=== PATIENT | female | born 1995 | race Caucasian/White ===

== ENCOUNTER 2017-11-25 09:07 | Emergency (ER) | payer OTHER ==
[~2017-11-25] VITALS: Ht 177.8 cm; Wt 61.2 kg
[2017-11-25 09:57] LABS: BASOPHILS ABSOLUTE AUTO 0.01 K/mm3 (0.00-0.23); BASOPHILS PERCENT AUTO 0 % (0-2); EOSINOPHILS ABSOLUTE AUTO 0.01 K/mm3 (0.00-0.68); EOSINOPHILS PERCENT AUTO 0 % (0-6); Hematocrit 42.5 % (33.0-51.0); Hemoglobin 14.3 g/dL (11.5-16.0); IMMATURE GRAN ABSOLUTE AUTO 0.01 K/mm3 (0.00-0.10); IMMATURE GRAN PERCENT AUTO 0 % (0-1); LYMPHOCYTES ABSOLUTE AUTO 1.55 K/mm3 (0.84-5.20); LYMPHOCYTES PERCENT AUTO 41 % (21-46); MONOCYTES ABSOLUTE AUTO 0.53 K/mm3 (0.16-1.47); MONOCYTES PERCENT AUTO 14 % (4-13); Mean Corpuscular HGB Conc 33.6 g/dL (31.5-36.5); Mean Corpuscular Volume 89 fL (80-100); Mean Platelet Volume 11.4 fL (9.1-12.4); NEUTROPHILS ABSOLUTE AUTO 1.66 K/mm3 (1.96-9.15); NEUTROPHILS PERCENT AUTO 44 % (41-73); Platelet Count 188 K/mm3 (150-400); RDW Coefficient Variation 11.9 % (11.7-14.2); Red Blood Cell Count 4.76 M/mm3 (3.80-5.20); White Blood Cell Count 3.77 K/mm3 (4.00-11.30)
[2017-11-25 10:53] LABS: Alanine Aminotransfer (ALT/SGP 22 U/L (12-78); Albumin, Blood 3.9 g/dL (3.4-5.0); Albumin/Globulin Ratio 1.3 (0.8-1.8); Alk Phos 64 U/L (50-136); Anion Gap 6 mmol/L (6-16); Aspartate Aminotrans (AST/SGOT 15 U/L (12-37); Bilirubin, Total 0.7 mg/dL (0.1-1.0); Blood Urea Nitrogen 11 mg/dL (8-24); Bun/Creatinine Ratio 16.7 (12.0-20.0); CO2, Blood 26 mmol/L (21-32); Calcium, Blood 8.8 mg/dL (8.5-10.1); Chloride, Blood 108 mmol/L (98-108); Creatinine, Blood 0.66 mg/dL (0.40-1.00); Glomerular Filtration Rate >60 (60-); Glucose, Blood 81 mg/dL (70-99); Potassium, Blood 3.7 mmol/L (3.5-5.5); Sodium, Blood 140 mmol/L (136-145); Total Protein, Blood 6.9 g/dL (6.4-8.2); Troponin I <0.015 ng/mL (0.000-0.040)
[2017-11-25] MEDS ORDERED: IBUP600 PO (11:16)
== END 2017-11-25 11:20 | disposition home or self-care (01) ==
LOC: ER 09:07
PROVIDERS: Internal Medicine
DX: I30.9 Acute pericarditis, unspecified (principal)
CPT/HCPCS: 36415; 71046; 80053; 84484; 85025; 85379; 85651; 86140; 93005; 93010; 96374; 99284; J1885

== ENCOUNTER → 2019-04-17 | Outpatient (CLI) | payer BC ==
[~2019-04-17] MED LIST: IBUP600 PO
[2019-04-19 02:07] LABS: CHLAMYDIA TRACHOMATIS, NAA Negative (Negative); NEISSERIA GONORRHOEAE, NAA Negative (Negative)
== END | disposition home or self-care (01) ==
LOC: LAB SHORT 15:48 → LAB 15:48
PROVIDERS: Obstetrics & Gynecology
DX: Z01.419 Encounter for gynecological examination (general) (routine) without abnormal findings (principal)
CPT/HCPCS: 87491; 87591; G0123

== ENCOUNTER 2019-07-16 05:47 | Day surgery (SDC) | payer BC ==
[~2019-07-16 05:47] MED LIST changes: +Clomiphene Citr50 MG PO; +METF500 PO; +ZOLP10 PO
[2019-07-16] MEDS ORDERED: LETR2.5 PO (06:45)
--- NOTE | 2019-07-16 07:01 | NUR ---
History, Chart, Medications and Allergies reviewed before start of procedure. Lungs clear T/O to Auscultation. Patient confirms NPO status and agrees with scheduled surgery. Pre-Op teaching done. Pt verbalizes understanding.
--- NOTE | 2019-07-16 10:59 | NUR ---
DR. SUE AT BEDSIDE TO LOOK AT PT EYE. REMAINS IRRITATED. REFRESH TEARS ORDERED AND ADMINISTERED WITH LITTLE EFFECT. Discharge instructions reviewed with patient. Patient verbalizes understanding. Copy given to patient to take home. Discharged via wheelchair to private car for ride home.
--- NOTE | 2019-07-16 11:00 | NUR ---
ICE PACK GIVEN FOR ICE THERAPY. DRESSING TO BE REMOVED IN 8 HOURS.
== END 2019-07-16 11:01 | disposition home or self-care (01) ==
LOC: ORSCMMR 05:47 → ORD 07:30 → ORSCMMR 11:01
PROVIDERS: Surgery
PROC: 0JPV0HZ Removal of Contraceptive Device from Upper Extremity Subcutaneous Tissue and Fascia, Open Approach (ICD-10-PCS; principal; 2019-07-16 07:30)
DX: L92.3 Foreign body granuloma of the skin and subcutaneous tissue (principal); Z18.2 Retained plastic fragments; E28.2 Polycystic ovarian syndrome; Z79.899 Other long term (current) drug therapy
CPT/HCPCS: 76882; 88300; A9270-GY; J0690; J2250; J2405; J2704; J3010; J7120

== ENCOUNTER → 2019-09-28 | Outpatient (CLI) | payer BC ==
[~2019-09-28] MED LIST changes: +LETR2.5 PO
== END | disposition home or self-care (01) ==
LOC: LAB 09:00 → LAB SHORT 09:00
DX: R11.0 Nausea (principal); R53.83 Other fatigue
CPT/HCPCS: 84144; 84702; 84703

== ENCOUNTER → 2020-08-31 | Outpatient (CLI) | payer BC ==
[~2020-08-31] MED LIST changes: +IBUP800 PO; +PRENATAL TABLE1 EAC2 PO; +Percocet 5-3251 EACH PO
== END | disposition home or self-care (01) ==
LOC: LAB 11:09
DX: O09.92 Supervision of high risk pregnancy, unspecified, second trimester (principal)
CPT/HCPCS: 87081; 87150

== ENCOUNTER → 2021-12-28 | Outpatient (CLI) | payer BC | END | disposition home or self-care (01) | LOC: LAB 16:04 → LAB SHORT 16:04 | PROVIDERS: Obstetrics & Gynecology | DX: Z12.4 Encounter for screening for malignant neoplasm of cervix (principal) | CPT/HCPCS: G0123 ==

== ENCOUNTER → 2022-09-08 | Outpatient (CLI) | payer BC ==
[2022-09-08 14:02] LABS: BASOPHILS ABSOLUTE AUTO 0.01 K/mm3 (0.00-0.23); BASOPHILS PERCENT AUTO 0 % (0-2); EOSINOPHILS ABSOLUTE AUTO 0.07 K/mm3 (0.00-0.68); EOSINOPHILS PERCENT AUTO 2 % (0-6); Hematocrit 41.8 % (33.0-51.0); Hemoglobin 14.1 g/dL (11.5-16.0); IMMATURE GRAN ABSOLUTE AUTO 0.01 K/mm3 (0.00-0.10); IMMATURE GRAN PERCENT AUTO 0 % (0-1); LYMPHOCYTES ABSOLUTE AUTO 1.73 K/mm3 (0.84-5.20); LYMPHOCYTES PERCENT AUTO 39 % (21-46); MONOCYTES ABSOLUTE AUTO 0.47 K/mm3 (0.16-1.47); MONOCYTES PERCENT AUTO 11 % (4-13); Mean Corpuscular HGB 29.6 pg (26.0-34.0); Mean Corpuscular HGB Conc 33.7 g/dL (31.5-36.5); Mean Corpuscular Volume 88 fL (80-100); Mean Platelet Volume 11.5 fL (9.1-12.4); NEUTROPHILS ABSOLUTE AUTO 2.14 K/mm3 (1.96-9.15); NEUTROPHILS PERCENT AUTO 48 % (41-73); Platelet Count 201 K/mm3 (150-400); RDW Coefficient Variation 12.3 % (11.7-14.2); RDW Standard Deviation 39.7 fL (35.1-46.3); Red Blood Cell Count 4.76 M/mm3 (3.80-5.20); White Blood Cell Count 4.43 K/mm3 (4.00-11.30)
[2022-09-08 14:11] LABS: Albumin, Blood 4.1 g/dL (3.4-5.0); Albumin/Globulin Ratio 1.5 (0.8-1.8); Bilirubin, Total 0.5 mg/dL (0.1-1.0); Bun/Creatinine Ratio 10.4 (12.0-20.0); Calcium, Blood 8.8 mg/dL (8.5-10.1); Creatinine, Blood 0.77 mg/dL (0.40-1.00); Globulin, Blood 2.8 g/dL (2.2-4.0); Total Protein, Blood 6.9 g/dL (6.4-8.2)
== END ==
LOC: LAB 13:56 → LAB SHORT 13:56
PROVIDERS: Physician Assistant Medical
DX: R07.9 Chest pain, unspecified (principal)
CPT/HCPCS: 80053; 84484; 85025

== ENCOUNTER → 2023-04-19 | Outpatient (CLI) | payer BC ==
[2023-04-20 12:21] LABS: Candida species (DNA Probe) Negative (NEGATIVE); G. vaginalis (DNA Probe) Negative (NEGATIVE); T. vaginalis (DNA Probe) Negative (NEGATIVE)
== END ==
LOC: LAB SHORT 10:27 → LAB 10:27
PROVIDERS: Emergency Medicine
DX: N39.0 Urinary tract infection, site not specified (principal); R31.9 Hematuria, unspecified
CPT/HCPCS: 87086; 87480; 87510; 87660

== ENCOUNTER 2023-08-17 19:12 | Emergency (ER) | payer BC ==
[~2023-08-17] VITALS: Ht 177.8 cm; Wt 63.5 kg
[2023-08-17 19:33] LABS: BASOPHILS ABSOLUTE AUTO 0.01 K/mm3 (0.00-0.23); BASOPHILS PERCENT AUTO 0 % (0-2); EOSINOPHILS ABSOLUTE AUTO 0.06 K/mm3 (0.00-0.68); EOSINOPHILS PERCENT AUTO 1 % (0-6); Hematocrit 37.7 % (33.0-51.0); Hemoglobin 12.7 g/dL (11.5-16.0); IMMATURE GRAN ABSOLUTE AUTO 0.01 K/mm3 (0.00-0.10); IMMATURE GRAN PERCENT AUTO 0 % (0-1); LYMPHOCYTES ABSOLUTE AUTO 2.44 K/mm3 (0.84-5.20); LYMPHOCYTES PERCENT AUTO 35 % (21-46); MONOCYTES ABSOLUTE AUTO 0.62 K/mm3 (0.16-1.47); MONOCYTES PERCENT AUTO 9 % (4-13); Mean Corpuscular HGB Conc 33.7 g/dL (31.5-36.5); Mean Corpuscular Volume 89 fL (80-100); NEUTROPHILS ABSOLUTE AUTO 3.87 K/mm3 (1.96-9.15); NEUTROPHILS PERCENT AUTO 55 % (41-73); Platelet Count 205 K/mm3 (150-400); RDW Coefficient Variation 12.3 % (11.7-14.2); RDW Standard Deviation 40.1 fL (35.1-46.3); Red Blood Cell Count 4.24 M/mm3 (3.80-5.20); White Blood Cell Count 7.01 K/mm3 (4.00-11.30)
[2023-08-17 21:04] LABS: Albumin, Blood 3.7 g/dL (3.4-5.0); Albumin/Globulin Ratio 1.4 (0.8-1.8); Bilirubin, Total 0.4 mg/dL (0.1-1.0); Bun/Creatinine Ratio 19.1 (12.0-20.0); Calcium, Blood 8.8 mg/dL (8.5-10.1); Creatinine, Blood 0.73 mg/dL (0.40-1.00); Globulin, Blood 2.7 g/dL (2.2-4.0); Potassium, Blood 3.3 mmol/L (3.5-5.5); Total Protein, Blood 6.4 g/dL (6.4-8.2)
[2023-08-17 21:51] VITALS: BP 124/78
== END 2023-08-17 21:52 | disposition home or self-care (01) ==
LOC: ER 19:12
PROVIDERS: Student in an Organized Health Care Education/Training Program
DX: O99.891 Other specified diseases and conditions complicating pregnancy (principal); R10.9 Unspecified abdominal pain; Z79.899 Other long term (current) drug therapy; Z3A.01 Less than 8 weeks gestation of pregnancy
CPT/HCPCS: 36415; 76801; 76817; 80053; 84702; 85025; 86900; 86901; 99284-25

== ENCOUNTER → 2023-10-01 | Outpatient (CLI) | payer BC ==
[2023-10-04 07:10] LABS: APTIMA MEDIA TYPE Urine; C. TRACHOMATIS BY TMA Negative (Negative); N. GONORRHOEAE BY TMA Negative (Negative); SPECIMEN SOURCE Urine
== END ==
LOC: LAB SHORT 08:53 → LAB 08:53
PROVIDERS: Family Medicine
DX: Z34.81 Encounter for supervision of other normal pregnancy, first trimester (principal)
CPT/HCPCS: 87086; 87491; 87591

== ENCOUNTER → 2024-03-25 | Outpatient (CLI) | payer BC | END | disposition home or self-care (01) | LOC: LAB SHORT 16:31 → LAB 16:31 | DX: Z34.83 Encounter for supervision of other normal pregnancy, third trimester (principal); Z3A.36 36 weeks gestation of pregnancy | CPT/HCPCS: 87081; 87150 ==

== ENCOUNTER 2024-04-11 05:11 | Inpatient (IN) | payer BC ==
[~2024-04-11] VITALS: Ht 177.8 cm; Wt 72.7 kg
[2024-04-11] VITALS (16 sets, daily range): BP systolic 109–135; BP diastolic 60–90
[2024-04-11] MEDS ORDERED: Citric Acid/Sodium Citrate 30 ML BTL PO SCH (05:15)
[2024-04-11] MEDS ORDERED: Metoclopramide HCl 5MG / ML 2ML Vial IV SCH (05:15)
[2024-04-11] MEDS ORDERED: Lactated Ringer's 1,000 ML IV SCH ×2 (05:15)
[2024-04-11] MEDS ORDERED: CefOXitin Sodium 2,000 MG in NS 50 ML IV SCH ×2 (05:20→06:45)
[2024-04-11 05:40] LABS: BASOPHILS ABSOLUTE AUTO 0.01 K/mm3 (0.00-0.23); BASOPHILS PERCENT AUTO 0 % (0-2); EOSINOPHILS ABSOLUTE AUTO 0.07 K/mm3 (0.00-0.68); EOSINOPHILS PERCENT AUTO 1 % (0-6); Hematocrit 35.5 % (33.0-51.0); Hemoglobin 11.7 g/dL (11.5-16.0); IMMATURE GRAN ABSOLUTE AUTO 0.03 K/mm3 (0.00-0.10); IMMATURE GRAN PERCENT AUTO 0 % (0-1); LYMPHOCYTES ABSOLUTE AUTO 1.95 K/mm3 (0.84-5.20); LYMPHOCYTES PERCENT AUTO 29 % (21-46); MONOCYTES ABSOLUTE AUTO 0.77 K/mm3 (0.16-1.47); MONOCYTES PERCENT AUTO 11 % (4-13); Mean Corpuscular Volume 82 fL (80-100); NEUTROPHILS ABSOLUTE AUTO 3.96 K/mm3 (1.96-9.15); NEUTROPHILS PERCENT AUTO 59 % (41-73); Platelet Count 128 K/mm3 (150-400); RDW Standard Deviation 38.6 fL (35.1-46.3); Red Blood Cell Count 4.33 M/mm3 (3.80-5.20); White Blood Cell Count 6.79 K/mm3 (4.00-11.30)
[2024-04-11 05:44] LABS: Mean Platelet Volume 13.3 fL (9.1-12.4)
[2024-04-11] MEDS ORDERED: SERT100 PO (06:08)
[2024-04-11] MEDS ORDERED: PROM12.5S PO (06:08)
[2024-04-11] MEDS ORDERED: ACYC400 (06:09)
[2024-04-11] MEDS ORDERED: Oxytocin 10 Unit / ML Vial ONE ×4 (07:08→08:14)
[2024-04-11] MEDS ORDERED: Ondansetron HCl 2 MG / ML 2ML Vial ONE (07:09)
[2024-04-11] MEDS ORDERED: Dexamethasone Sod Phos 10 MG/ML 1ML VIAL ONE (07:09)
[2024-04-11] MEDS ORDERED: ePHEDrine Sulfate 50 MG/ML 1ML Injection ONE (08:00)
[2024-04-11] MEDS ORDERED: FentaNYL Citrate 50 MCG/ML 2 ML Injection ONE ×3 (08:11→09:33)
--- NOTE | 2024-04-11 08:19 | NUR ---
04/11/24 0819 Kourtney Garrison S C/S DELIVERY OF BABY BOY AT 0807. CORD BLOOD COLLECTED AND SENT WITH JUSTIN LEONE.
[2024-04-11] MEDS ORDERED: Glycopyrrolate 0.2 MG/ML 5ML VIAL ONE (08:23)
[2024-04-11] MEDS ORDERED: propofoL 20 ML IV ONE (08:31)
[2024-04-11] MEDS ORDERED: Bupivacaine 0.5% HCl 5 MG/ML 30MLVIAL ONE (08:45)
[2024-04-11] MEDS ORDERED: Misoprostol 200 MCG Tab PR PRN (09:30)
[2024-04-11] MEDS ORDERED: Acetaminophen 500 MG Tab PO PRN (09:30)
[2024-04-11] MEDS ORDERED: Ondansetron HCl 2 MG / ML 2ML Vial IV PRN (09:30)
[2024-04-11] MEDS ORDERED: Morphine Sulfate 4 MG/1 ML Injection IV PRN (09:30)
[2024-04-11] MEDS ORDERED: Carboprost Tromethamine 250 MCG/ML 1ML Amp IM PRN (09:30)
[2024-04-11] MEDS ORDERED: OxyCODONE HCL 5 MG TAB PO PRN (09:35)
[2024-04-11] MEDS ORDERED: Ketorolac Tromethamine 30mg Vial IV PRN (09:35)
[2024-04-11] MEDS ORDERED: Promethazine HCl 25 MG Tab PO PRN (09:35)
[2024-04-11] MEDS ORDERED: FentaNYL Citrate 50 MCG/ML 2 ML Injection IV PRN (09:35)
[2024-04-11] MEDS ORDERED: HYDROmorphone HCl/Pf 1MG SYR IV PRN (09:40)
[2024-04-11] MEDS ORDERED: HYDROcodone 5-APAP 325 TAB PO PRN (09:40)
[2024-04-11] MEDS ORDERED: Methylergonovine Maleate 0.2MG / ML 1ML Amp IM PRN (09:45)
[2024-04-11] MEDS ORDERED: Methylergonovine Maleate 0.2 MG Tab PO PRN (09:45)
--- NOTE | 2024-04-11 12:20 | NUR ---
Assumed care from Dina Clemens RN. Pt resting in bed, nb. Pain medication given per request.
[2024-04-11] MEDS ORDERED: Simethicone 80 MG Chew PO PRN (15:20)
[2024-04-11] MEDS ORDERED: Ketorolac Tromethamine 30mg Vial IV SCH ×2 (15:20→18:00)
[2024-04-11] MEDS ORDERED: Ibuprofen 400 MG Tab PO SCH (16:00)
[2024-04-11] MEDS ORDERED: fentaNYL citrate 20 MCG/ML 30MLSYR IV PRN (17:25)
--- NOTE | 2024-04-11 23:39 | NUR ---
2229- PT DECLINES SHOWER TONARACELI, STATES SHE JUST WANTS TO SLEEP FOR A BIT FIRST. PT ALSO DECLINES TO HAVE HER LAY CATHETER OUT AT THIS TIME, PT AWARE OF THE RISK OF INFECTION FROM LEAVING THE LAY IN FOR EXTENDED PERIODS OF TIME.
[2024-04-12 04:28] VITALS: BP 108/70
[2024-04-12 06:31] LABS: BASOPHILS ABSOLUTE AUTO 0.01 K/mm3 (0.00-0.23); BASOPHILS PERCENT AUTO 0 % (0-2); EOSINOPHILS ABSOLUTE AUTO 0.02 K/mm3 (0.00-0.68); EOSINOPHILS PERCENT AUTO 0 % (0-6); Hematocrit 28.9 % (33.0-51.0); Hemoglobin 9.3 g/dL (11.5-16.0); IMMATURE GRAN ABSOLUTE AUTO 0.03 K/mm3 (0.00-0.10); IMMATURE GRAN PERCENT AUTO 0 % (0-1); LYMPHOCYTES ABSOLUTE AUTO 1.87 K/mm3 (0.84-5.20); LYMPHOCYTES PERCENT AUTO 21 % (21-46); MONOCYTES ABSOLUTE AUTO 0.85 K/mm3 (0.16-1.47); MONOCYTES PERCENT AUTO 9 % (4-13); Mean Corpuscular HGB Conc 32.2 g/dL (31.5-36.5); Mean Corpuscular Volume 84 fL (80-100); NEUTROPHILS ABSOLUTE AUTO 6.28 K/mm3 (1.96-9.15); NEUTROPHILS PERCENT AUTO 69 % (41-73); Platelet Count 100 K/mm3 (150-400); RDW Coefficient Variation 13.2 % (11.7-14.2); RDW Standard Deviation 39.9 fL (35.1-46.3); Red Blood Cell Count 3.44 M/mm3 (3.80-5.20); White Blood Cell Count 9.06 K/mm3 (4.00-11.30)
[2024-04-12 06:35] LABS: Mean Platelet Volume 13.5 fL (9.1-12.4)
[2024-04-12 08:42] VITALS: BP 139/73
[2024-04-12] MEDS ORDERED: Lanolin Cream TOP SCH (08:45)
[2024-04-12] MEDS ORDERED: Docusate Sodium 100 MG Cap PO SCH (09:00)
[2024-04-12] MEDS ORDERED: Gabapentin 300 MG Cap PO SCH (09:00)
[2024-04-12 14:10] VITALS: BP 120/67
[2024-04-12 17:56] VITALS: BP 116/65
[2024-04-12 19:11] VITALS: BP 117/59
[2024-04-13 02:28] VITALS: BP 115/72
[2024-04-13 08:12] VITALS: BP 116/61
[2024-04-13] MEDS ORDERED: GABA300 PO (10:23)
[2024-04-13] MEDS ORDERED: OXYC5 PO (10:24)
[2024-04-13 10:55] VITALS: BP 120/75
--- NOTE | 2024-04-13 11:10 | NUR ---
No acute changes t/o shift, ID bands matched w/nb and verification form. Printed d/c instructions reviewed by pt, verbalized understanding and denied additional teaching. Pt d/c'd home ambulatory to care of .
== END 2024-04-13 11:10 | disposition home or self-care (01) | DRG 784 ==
LOC: BC 05:11
PROVIDERS: ADMIT Family Medicine
PROC: 10D00Z1 Extraction of Products of Conception, Low, Open Approach (ICD-10-PCS; principal; 2024-04-11 07:30)
PROC: 0UT70ZZ Resection of Bilateral Fallopian Tubes, Open Approach (ICD-10-PCS; 2024-04-11 07:30)
DX: O34.211 Maternal care for low transverse scar from previous cesarean delivery (principal); O98.52 Other viral diseases complicating childbirth; Z79.899 Other long term (current) drug therapy; B00.9 Herpesviral infection, unspecified; Z37.0 Single live birth; Z3A.39 39 weeks gestation of pregnancy
CPT/HCPCS: 36415; 85025; 86850; 86900; 86901; 86923; 88302; A9270; J0694; J1100; J1885; J2270; J2405; J2590; J2704; J2765; J3010; J7120

== ENCOUNTER → 2025-08-24 | Outpatient (CLI) | payer BC ==
[~2025-08-24] MED LIST changes: +ACYC400; +GABA300 PO; +OXYC5 PO; +PROM12.5S PO; +SERT100 PO
== END ==
LOC: LAB SHORT 18:16 → LAB 18:16
DX: R30.0 Dysuria (principal)
CPT/HCPCS: 87086